=== PATIENT | male | born 1955 | race Caucasian/White ===

== ENCOUNTER 2016-12-21 17:53 | Emergency (ER) | payer BC ==
[~2016-12-21] VITALS: Ht 188 cm; Wt 117.0 kg
[2016-12-21 18:07] VITALS: TEMP 37; Ht 188 cm; Wt 117.0 kg
[2016-12-21] MEDS ORDERED: ASPI81TA28 PO (18:36)
[2016-12-21] MEDS ORDERED: PRAV40TA2 PO (18:39)
[2016-12-21] MEDS ORDERED: LISI-787 PO (18:39)
[2016-12-21] MEDS ORDERED: [UNRECOGNIZED DRUG - CODE] PO (18:39)
[2016-12-21] MEDS ORDERED: XYLOCAINE 1%/SOD BICARB 20 ML VIAL INFIL STA (18:42)
[2016-12-21] MEDS ORDERED: LIDOCAINE HCL 1% 20 ML VIAL ONE (18:44)
[2016-12-21] MEDS ORDERED: CEPHALEXIN MONOHYDRATE 250 MG CAP PO ONE (18:45)
[2016-12-21] MEDS ORDERED: CEPHALEXIN 500MG HOME PACK 1 EA BTL PO ONE (18:45)
--- NOTE | 2016-12-21 19:07 | EMERGENCY ROOM VISIT NOTE ---
History Report prepared by Quique: Sea Lamar Under the Supervision of: Dr. Dylan Wen M.D. First contact with patient: 18:12 Chief Complaint: LACERATION/CUT (SUT/DERMABOND) Stated Complaint: CUT FINGER L INDEX Nursing Triage Summary: laceration to left 2nd finger. had finger in way of string on the crossbow. History of Present Illness The patient is a 61 year old male who presents to the Emergency Room with complaints of left index finger pain that began AIRPLANE TESTER. He rates his pain a 2/10 in severity. At this time, the patient was shooting his friend's crossbow. He was resting his hand on a sandbag when he was shooting the bow. He accidently rested his finger on the drawstring when it fired. He has a laceration to the finger. The knuckle is exposed. He can still move the finger and does not believe that the bone is involved. His last Tetanus immunization was within the past 10 years. He denies any numbness. His pain worsens with movement. Source of History: patient Onset: AIRPLANE TESTER Position: finger(s) (Left index) Symptom Intensity: 2/10 Quality: ache Timing: constant Modifying Factors (Worsening): movement Associated Symptoms: No numbness Review of Systems See HPI for pertinent positives & negatives. A total of 10 systems reviewed and were otherwise negative. Past Medical & Surgical Medical Problems: (1) HLD (hyperlipidemia) (2) HTN (hypertension) Family History Omitted secondary to the patient's age. Social History Smoking Status: Light Tobacco Smoker Smokeless Tobacco Use: No Alcohol Use: occasionally Drug Use: none Occupation Status: employed Current/Historical Medications Scheduled Aspirin (Aspirin Ec), 81 MG PO DAILY Calcium (Chelated Calcium), 200 MG PO DAILY Cephalexin Monohydrate (Keflex), 1 CAP PO QID Lisinopril/Hctz (Zestoretic 20MG/12.5MG), 1 TAB PO DAILY Pravastatin Sodium (Pravastatin Sodium), 40 MG PO HS Allergies Coded Allergies: No Known Allergies (Unverified , 12/21/16) Physical Exam Vital Signs Date Time Temp Pulse Resp B/P (MAP) Pulse Ox O2 Delivery O2 Flow Rate FiO2 12/21/16 19:52 75 19 124/69 98 12/21/16 18:07 37.0 82 18 190/93 95 Room Air Physical Exam GENERAL: Patient is a healthy-appearing well-nourished male HEAD: Normocephalic atraumatic EYES: Ocular movements intact pupils equal and react to light OROPHARYNX mucous membranes are moist no exudates present no erythema or edema present NECK: Supple no nuchal rigidity CHEST: Good equal expansion LUNGS: Clear and equal to auscultation CARDIAC: Normal S1 and S2 ABDOMEN: Soft nontender no guarding BACK: No CVA tenderness EXTREMITIES: There is a soft tissue injury to the patient's first knuckle of the left index finger. Tendon intact. Good ROM of the distal and middle phalanx. On the dorsal surface he is able to extend and flex the finger. NEURO: Patient is following commands and answering questions appropriately. Alert and oriented x3 Cranial Nerves 2-12 grossly intact Medical Decision & Procedures ER Provider Diagnostic Interpretation: Radiology results as stated below per my review and radiologist interpretation: LEFT SECOND FINGER 3 VIEWS CLINICAL HISTORY: Second finger injury and pain. FINDINGS: 3 views of the left second finger are obtained. No prior studies are available for comparison at the time of dictation. The skeletal structures are well mineralized. No fracture is seen. Mild osteoarthritic change is present at the second distal interphalangeal joint. The second proximal interphalangeal and metacarpophalangeal joints are preserved. Soft tissue swelling is present in the second finger and a cutaneous injury is suggested at the level of the proximal phalangeal joint. No radiodense foreign body is identified. IMPRESSION: 1. Soft tissue injury/swelling in the left second digit with no radiographic evidence of fracture. 2. Mild arthritic change at the distal interphalangeal joint as above. Electronically signed by: Zachery Ramos M.D. 12/21/2016 7:05 PM Dictated Date/Time: 12/21/2016 7:03 PM Medications Administered Medications (Trade) Dose Ordered Sig/Jose Route Start Time Stop Time Status Last Admin Dose Admin Cephalexin Monohydrate (Keflex 500MG Home Pack) 1 homepack NOW ONCE PO 12/21/16 18:45 12/21/16 18:46 DC 12/21/16 19:31 1 HOMEPACK Cephalexin Monohydrate (Keflex Cap) 500 mg NOW ONCE PO 12/21/16 18:45 12/21/16 18:46 DC 12/21/16 19:31 500 MG Procedure Location: Left index finger, 1st knuckle Total length: 2.6 cm Complexity: simple, linear, does no appear to involve the tendon Verbal consent was obtained after the risks and benefits were explained, including but not limited to bleeding, scarring, infection, pain, and bone/joint /nerve damage. At this time, the risks of the procedure are less than the risks of NOT performing the procedure. A time out was taken and the correct patient and site identified. The skin was prepped with betadine. The target area was anesthetized with 4 ml of 1% lidocaine without epinephrine. Copious irrigation was performed using normal saline. The skin was re-prepped with betadine and a sterile field set. The wound was explored for foreign bodies and none found. Examination revealed no injury to deep structures such as tendons, bone, or significant blood vessels. Debridement was not performed. The wound edges were approximated using 6, 4-0 simple interrupted nylon sutures. Hemostasis and excellent approximation was achieved. Antibacterial ointment and a sterile dressing applied. Detailed wound care instructions and signs and symptoms of infection reviewed with the patient. No complications and the patient tolerated the procedure well. ED Course 1811: Past medical records reviewed. The patient was evaluated in room D1. A complete history and physical examination was performed. 1841: Ordered Lidocaine HCl 20 ml INFIL 1844: I performed a laceration repair procedure at this time. Please see the procedure note for more information. Ordered Keflex Cap 500 mg PO, Cephalexin Monohydrate 1 homepack PO Medical Decision Differential diagnosis: Etiologies such as fracture, dislocation, intra-abdominal, pneumothorax, intrathoracic , intracranial, neurologic, as well as other traumatic pathologies were entertained. This is a 61-year-old male who presents emergency department complaining of laceration to his index finger. The patient is neurovascularly intact and does not appear to have any tendon damage as he is able to extend his finger fully. The laceration was repaired as above. The patient's tetanus is up-to-date. I do believe that the patient can be safely discharged home for follow-up with hand surgeon. Patient was in agreement with the treatment plan. Medication Reconcilliation Current Medication List: was personally reviewed by me Blood Pressure Screening Patient's blood pressure: Elevated blood pressure Blood pressure disposition: Elevated BP felt to be situational Impression Primary Impression: Laceration Scribe Attestation The scribe's documentation has been prepared under my direction and personally reviewed by me in its entirety. I confirm that the note above accurately reflects all work, treatment, procedures, and medical decision making performed by me. Departure Information Dispostion Home / Self-Care Prescriptions Cephalexin Monohydrate (Keflex) 500 Mg Cap 1 CAP PO QID for 10 Days, #40 CAP Prov: Dylan Wen MD 12/21/16 Referrals Emeli Erazo M.D. (PCP) Jace James MD Forms HOME CARE DOCUMENTATION FORM, IMPORTANT VISIT INFORMATION, School Instructions, Work Instructions Patient Instructions ED Laceration Ext Sutr Stap Tape, ED Rupture Tendon Finger, ED Scar Tips to Minimize, My [facility] Additional Instructions Follow up with Dr James's office Sutures out in 10-14 days Apply bacitracin to sutures twice a day
[2016-12-21] MEDS ORDERED: CEPH500C PO (19:13)
[2016-12-21 19:52] VITALS: BP 124/69; PULSE 75; O2SAT 98
== END 2016-12-21 19:53 | disposition home or self-care (01) ==
LOC: C.EDB 17:54 → C.EDD 19:53
DX: S61.211A Laceration without foreign body of left index finger without damage to nail, initial encounter (principal); W20.8XXA Other cause of strike by thrown, projected or falling object, initial encounter; I10 Essential (primary) hypertension; E78.5 Hyperlipidemia, unspecified; F17.200 Nicotine dependence, unspecified, uncomplicated; Z79.82 Long term (current) use of aspirin; Z79.899 Other long term (current) drug therapy

== ENCOUNTER 2016-12-31 06:56 | Emergency (ER) | payer BC ==
[~2016-12-31] VITALS: Ht 188 cm; Wt 116.7 kg
[~2016-12-31 06:56] MED LIST: ASPI81TA28 PO; CEPH500C PO; LISI-787 PO; PRAV40TA2 PO; [UNRECOGNIZED DRUG - CODE] PO
[2016-12-31 07:04] VITALS: TEMP 36.6; Ht 188 cm; Wt 116.7 kg
--- NOTE | 2016-12-31 07:23 | EMERGENCY ROOM VISIT NOTE ---
ED Visit Note First contact with patient: 07:07 CHIEF COMPLAINT: Removal of sutures HISTORY OF PRESENT ILLNESS: This 61-year-old male patient presents to the emergency department for removal of sutures from their left index finger. The sutures were placed 10 days ago. There have been no signs of infection. The patient states he is still not able to move the finger fully. The patient denies any pain. REVIEW OF SYSTEMS: A review of systems was performed with positives and pertinent negatives listed in the history of present illness. All other systems were reviewed and are negative. ALLERGIES: No known drug allergies MEDICATIONS: Unchanged from previous visit. PMH: Unchanged from previous visit. SOCIAL HISTORY: Unchanged. PHYSICAL EXAM: VITALS: Vitals are noted on the nurse's note and reviewed by myself. Vital signs stable. GENERAL: This is a 61-year-old male, in no acute distress, nondiaphoretic, well- developed well-nourished. SKIN: There is a well-healing sutured wound on the left index finger over the PIP with no obvious signs of infection. ROM of the finger is limited. EMERGENCY DEPARTMENT COURSE: The patient was evaluated as above. Sutures were removed from the finger with no dehiscence. There is no evidence of infection. As the patient still has limited range of motion, he was advised to follow up with Dr. James. He will call for appointment. They verbalized understanding and were discharged home in good condition. DIAGNOSIS: Encounter for suture removal DISCHARGE INSTRUCTIONS & TREATMENT: Wash the remaining crusts off the wound. Keep the wound covered with SPF for the next 6 months to reduce scarring. Once the wound has fully healed, you may apply Vitamin E oil, cocoa butter, or any over the counter scar reducing formulations daily. Problem List Medical Problems: (1) HLD (hyperlipidemia) Status: Chronic (2) HTN (hypertension) Status: Chronic Current/Historical Medications Scheduled Aspirin (Aspirin Ec), 81 MG PO DAILY Calcium (Chelated Calcium), 200 MG PO DAILY Cephalexin Monohydrate (Keflex), 1 CAP PO QID Lisinopril/Hctz (Zestoretic 20MG/12.5MG), 1 TAB PO DAILY Pravastatin Sodium (Pravastatin Sodium), 40 MG PO HS Allergies Coded Allergies: No Known Allergies (Unverified , 12/21/16) Vital Signs Date Time Temp Pulse Resp B/P (MAP) Pulse Ox O2 Delivery O2 Flow Rate FiO2 12/31/16 07:04 36.6 71 18 149/97 98 Room Air Departure Information Impression Primary Impression: Encounter for removal of sutures Dispostion Home / Self-Care Condition GOOD Referrals Emeli Erazo M.D. (PCP) Jace James MD Patient Instructions My [facility] Additional Instructions Follow up with Dr. James for further evaluation of your injury. This is very important, as you may not regain your range of motion if you do not follow up with him.
[2016-12-31 07:34] VITALS: BP 149/97; PULSE 71; O2SAT 98
== END 2016-12-31 07:34 | disposition home or self-care (01) ==
LOC: C.EDB 06:56 → C.EDA 07:34
DX: S61.211D Laceration without foreign body of left index finger without damage to nail, subsequent encounter (principal); X58.XXXD Exposure to other specified factors, subsequent encounter; E78.5 Hyperlipidemia, unspecified; I10 Essential (primary) hypertension; Z79.82 Long term (current) use of aspirin

== ENCOUNTER 2019-12-19 09:10 | Inpatient (IN) ==
[2019-12-19] MEDS ORDERED: SODIUM CHLORIDE 0.9% 1000ML 1,000 ML IV SCH (10:00)
--- NOTE | 2019-12-19 10:00 | Emergency Department Note ---
History of Present Illness General Chief complaint: Illness Stated complaint: SHOULDER/BACK/LEG PAIN STAGE 4 CANCER Time Seen by Provider: 12/19/19 09:37 Source: patient and other (Girlfriend) History of Present Illness Provider complaint: Generalized weakness Onset (ago): day(s) Location: head Pain Consistency: + constant Maximum Pain Intensity: 7 Quality: + other (Generalized weakness) Exacerbated By: + other (Activity) Associated symptoms: + shortness of breath and + weakness; no chest pain, no cough, no fever/chills, no nausea/vomiting and no syncope This is a 64-year-old male with a history of stage IV prostate cancer with metastases to the bone sent here by his oncologist for evaluation for possible anemia. The patient states that he has been weak over the past 5 days. He has no energy and is unable to do much of anything. He admits that he has not been eating very much although he has been drinking plenty of water. He states that he just has no appetite. He states that he is not vomiting but he is worried that he will get nauseated if he tries to eat. He does have a history of chronic constipation due to the Percocet that he is taking for his pain to his bones. The patient states that he has had increased pain to his back, shoulders and legs. He has been trying to not take too much Percocet. He denies any fever, chest discomfort or pain, abdominal pain, vomiting or diarrhea. He denies any cough or cold symptoms or known exposure to COVID-19. He was tested 2 months ago and was negative. He has noticed some shortness of breath. He is currently on chemotherapy. Home Medications Home Medications Medication Instructions Recorded Confirmed Type cholecalciferol (vitamin D3) 1,000 unit PO QAM 03/20/19 12/19/19 History [Vitamin D3] docusate sodium [Stool Softener] 100 mg PO BID 09/21/19 12/19/19 History lisinopril 10 mg PO QAM 09/21/19 12/19/19 History oxycodone-acetaminophen 1 tab PO Q4H PRN 09/21/19 12/19/19 History prednisone 5 mg PO BID 10/11/19 12/19/19 History folic acid 1 mg PO QAM #30 tab 10/16/19 12/19/19 Rx mirtazapine 15 mg PO HS #30 tab 10/16/19 12/19/19 Rx abiraterone 250 mg PO DIRECTED 12/19/19 12/19/19 History atorvastatin 20 mg PO DAILY 12/19/19 12/19/19 History Allergies Allergy/AdvReac Type Severity Reaction Status Date / Time No Known Allergies Allergy Verified 10/11/19 18:06 Past Med/Surg History Medical History (Updated 12/19/19 @ 16:59 by Hang Marmolejo MD) HLD (hyperlipidemia) HTN (hypertension) Prostate cancer metastatic to bone Surgical History No pertinent past surgical history Family History Other No pertinent family history in first degree relatives Social History Smoking Status: Never smoker Hx Alcohol Use: No Hx Substance Use: No Preferred Language: Kazakh Communication Ability: Effective Guidance Director Required: No Beliefs That Will Affect Care: None marital status: Single Current Living Situation: Significant Other Other Information That Helps Us Care for You: No Feels Safe at Home: Yes Safety Concerns: Feels Safe At This Time Assistive Devices: Denture - Upper and Glasses Review of Systems See HPI for pertinent positives & negatives. and A total of 10 systems reviewed and were otherwise negative Physical Exam Vital Signs Vital Signs - 24 hr 12/19/19 09:15 12/19/19 09:59 12/19/19 10:17 Temperature 36.5 C Temperature Source Oral Pulse Rate - Lying 89 Pulse Rate - Sitting 94 H Pulse Rate - Standing 107 H Pulse Rate 104 H Pulse Rate [Apical] Respiratory Rate 20 Blood Pressure - Lying 136/78 Blood Pressure - Sitting 114/80 Blood Pressure- Standing 139/78 Blood Pressure 148/72 H Blood Pressure [Left Arm] Blood Pressure Mean 97 Blood Pressure Mean [Left Arm] Pulse Oximetry 98 98 Oxygen Delivery Method Room Air Room Air Sepsis Recent Fever Within 48 Hours No Sepsis New/Unexplained Change in Mental Status No Sepsis Action Taken by Nursing No Action Required 12/19/19 11:11 Temperature Temperature Source Pulse Rate - Lying Pulse Rate - Sitting Pulse Rate - Standing Pulse Rate Pulse Rate [Apical] 90 Respiratory Rate 18 Blood Pressure - Lying Blood Pressure - Sitting Blood Pressure- Standing Blood Pressure Blood Pressure [Left Arm] 126/79 Blood Pressure Mean Blood Pressure Mean [Left Arm] 94 Pulse Oximetry 97 Oxygen Delivery Method Room Air Sepsis Recent Fever Within 48 Hours Sepsis New/Unexplained Change in Mental Status Sepsis Action Taken by Nursing Constitutional: Vital signs reviewed. Cachectic and pale. Eyes: Pupils are equal round reactive to light. Conjunctiva are noninjected. ENT: Pharynx is clear without erythema or exudate. Mucous membranes are dry. Neck supple without meningeal signs. Respiratory: Clear to auscultation bilaterally. Breath sounds are equal bilaterally. Cardiovascular: Regular rate and rhythm. No rubs or gallops. GI: Soft, nondistended and nontender. Bowel sounds are present. Musculoskeletal: Slight ankle edema. No lower extremity tenderness. Integumentary: No cyanosis. or jaundice. Neurological: The patient is awake and alert. No focal deficits. Psychiatric: Normal affect. Not anxious appearing. Course Administered Medications Miscellaneous (Abiraterone 1,000 Mg ~ Order Awaiting Action) 1 ea N/A QS TITA Stop: 01/18/20 15:59 Last Admin: 12/19/19 16:37 Dose: Not Given Documented by: [id number] Discontinued Medications Sodium Chloride (Nss 1000ml) 1,000 mls @ 999 mls/hr IV .Q1H1M TITA Stop: 12/19/19 11:00 Last Infusion: 12/19/19 11:24 Dose: 0 mls/hr Documented by: [id number] Admin: 12/19/19 10:22 Dose: 999 mls/hr Documented by: [id number] Potassium Chloride (K Kaiden / Wtr) 10 meq in 100 mls @ 100 mls/hr IV ONE ONE Stop: 12/19/19 11:46 Last Infusion: 12/19/19 12:12 Dose: 0 mls/hr Documented by: [id number] Admin: 12/19/19 11:08 Dose: 100 mls/hr Documented by: [id number] Oxycodone/Acetaminophen (Oxycodone/Acetaminophen 10-325 Tab) 1 tab PO ONE STA Stop: 12/19/19 13:19 Last Admin: 12/19/19 14:03 Dose: 1 tab Documented by: [id number] Critical Care Time Critical Care Time: Yes Total Critical Care Time: 35 I have personally spent approximately 35 minutes of critical care time in the direct management of this patient. This includes bedside care, interpretation of diagnostic studies, and testing, discussion with consultants, patient, and family members, and other required patient management activities. These minutes are in excess of all separately billable procedures. Medical Decision Making Differential Diagnosis Anemia, dehydration, metabolic derangement, infection, malnutrition Medical Records Attestation: I reviewed the patient's medical records. The patient was admitted to the hospital in September for generalized weakness and anemia. He was seen here September 20 and transfused 2 units in the emergency department and discharged home. He came back later that month with worsening anemia and weakness. He was hospitalized at that time and transfused an additional 2 units of packed RBCs. His anemia was felt to be multifactorial and partly due to malnutrition. Home Medications Current Medication List: was personally reviewed by me Laboratory Data Attestation: I reviewed the patient's lab results. Result diagrams: 12/19/19 09:57 12/19/19 09:57 Lab Results 12/19/19 12/19/19 12/19/19 Range/Units 09:57 09:57 09:57 WBC 3.31 L (4.8-10.8) K/uL RBC 2.56 L (4.7-6.1) M/uL Hgb 6.9 L* (14.0-18.0) g/dL Hct 22.2 L (42-52) % MCV 86.7 (80-100) fL MCH 27.0 (25-34) pg MCHC 31.1 L (32-36) g/dL RDW Std Deviation 66.3 H (36.4-46.3) fL RDW Coeff of Xochitl 20.8 H (11.5-14.5) % Plt Count 322 (130-400) K/uL MPV 8.8 (7.4-10.4) fL Immature Gran % (Auto) 0.9 % Neut % (Auto) 81.3 % Lymph % (Auto) 10.9 % [place] % (Auto) 6.3 % Eos % (Auto) 0.3 % Baso % (Auto) 0.3 % Reticulocyte % (Auto) (0.5-2.0) % Neut # (Auto) 2.69 (1.4-6.5) K/uL Lymph # (Auto) 0.36 L (1.2-3.4) K/uL [place] # (Auto) 0.21 (0.11-0.59) K/uL Eos # (Auto) 0.01 (0-0.5) K/uL Baso # (Auto) 0.01 (0-0.2) K/uL Reticulocyte # (0.02-0.10) 10^6/uL Immature Gran # (Auto) 0.03 H (0.00-0.02) K/uL Anisocytosis Present Tear Drop Cells Occasional Ovalocytes 1+ Schistocytes Occasional Sodium 137 (136-145) mmol/L Potassium 3.1 L (3.5-5.1) mmol/L Chloride 103 (98-107) mmol/L Carbon Dioxide 27 (21-32) mmol/L Anion Gap 7.0 (3-11) BUN 12 (7-18) mg/dl Creatinine 0.36 L (0.6-1.4) mg/dl Est Cr Clr Drug Dosing Not Reportable Est GFR ( Amer) > 150.0 Est GFR (Non-Af Amer) 132.0 BUN/Creatinine Ratio 33.9 H (10-20) Glucose 95 (70-99) mg/dl Calcium 8.5 (8.5-10.1) mg/dl Phosphorus (2.5-4.9) mg/dl Magnesium (1.8-2.4) mg/dl Iron (35-175) mcg/dl Transferrin (200-360) mg/dl Transferrin % Sat (20-50) % Total Bilirubin 0.6 (0.2-1) mg/dl AST 54 H (15-37) U/L ALT 8 L (12-78) U/L Alkaline Phosphatase 1452 H (45-117) U/L Troponin I 0.032 (0-0.045) ng/ml Total Protein 5.5 L (6.4-8.2) gm/dl Albumin 1.7 L (3.4-5.0) gm/dl Globulin 3.8 (2.5-4.0) gm/dl Albumin/Globulin Ratio 0.4 L (0.9-2) TSH 1.780 (0.300-4.500) uIu/ml Blood Type Antibody Screen Crossmatch 12/19/19 12/19/19 12/19/19 Range/Units 09:57 09:57 09:57 WBC (4.8-10.8) K/uL RBC (4.7-6.1) M/uL Hgb (14.0-18.0) g/dL Hct (42-52) % MCV (80-100) fL MCH (25-34) pg MCHC (32-36) g/dL RDW Std Deviation (36.4-46.3) fL RDW Coeff of Xochitl (11.5-14.5) % Plt Count (130-400) K/uL MPV (7.4-10.4) fL Immature Gran % (Auto) % Neut % (Auto) % Lymph % (Auto) % [place] % (Auto) % Eos % (Auto) % Baso % (Auto) % Reticulocyte % (Auto) 1.6 (0.5-2.0) % Neut # (Auto) (1.4-6.5) K/uL Lymph # (Auto) (1.2-3.4) K/uL [place] # (Auto) (0.11-0.59) K/uL Eos # (Auto) (0-0.5) K/uL Baso # (Auto) (0-0.2) K/uL Reticulocyte # 0.04 (0.02-0.10) 10^6/uL Immature Gran # (Auto) (0.00-0.02) K/uL Anisocytosis Tear Drop Cells Ovalocytes Schistocytes Sodium (136-145) mmol/L Potassium (3.5-5.1) mmol/L Chloride (98-107) mmol/L Carbon Dioxide (21-32) mmol/L Anion Gap (3-11) BUN (7-18) mg/dl Creatinine (0.6-1.4) mg/dl Est Cr Clr Drug Dosing Est GFR ( Amer) Est GFR (Non-Af Amer) BUN/Creatinine Ratio (10-20) Glucose (70-99) mg/dl Calcium (8.5-10.1) mg/dl Phosphorus 3.0 (2.5-4.9) mg/dl Magnesium 2.0 (1.8-2.4) mg/dl Iron 42 (35-175) mcg/dl Transferrin 104 L (200-360) mg/dl Transferrin % Sat 29 (20-50) % Total Bilirubin (0.2-1) mg/dl AST (15-37) U/L ALT (12-78) U/L Alkaline Phosphatase (45-117) U/L Troponin I (0-0.045) ng/ml Total Protein (6.4-8.2) gm/dl Albumin (3.4-5.0) gm/dl Globulin (2.5-4.0) gm/dl Albumin/Globulin Ratio (0.9-2) TSH (0.300-4.500) uIu/ml Blood Type Antibody Screen Crossmatch 12/19/19 Range/Units 11:26 WBC (4.8-10.8) K/uL RBC (4.7-6.1) M/uL Hgb (14.0-18.0) g/dL Hct (42-52) % MCV (80-100) fL MCH (25-34) pg MCHC (32-36) g/dL RDW Std Deviation (36.4-46.3) fL RDW Coeff of Xochitl (11.5-14.5) % Plt Count (130-400) K/uL MPV (7.4-10.4) fL Immature Gran % (Auto) % Neut % (Auto) % Lymph % (Auto) % [place] % (Auto) % Eos % (Auto) % Baso % (Auto) % Reticulocyte % (Auto) (0.5-2.0) % Neut # (Auto) (1.4-6.5) K/uL Lymph # (Auto) (1.2-3.4) K/uL [place] # (Auto) (0.11-0.59) K/uL Eos # (Auto) (0-0.5) K/uL Baso # (Auto) (0-0.2) K/uL Reticulocyte # (0.02-0.10) 10^6/uL Immature Gran # (Auto) (0.00-0.02) K/uL Anisocytosis Tear Drop Cells Ovalocytes Schistocytes Sodium (136-145) mmol/L Potassium (3.5-5.1) mmol/L Chloride (98-107) mmol/L Carbon Dioxide (21-32) mmol/L Anion Gap (3-11) BUN (7-18) mg/dl Creatinine (0.6-1.4) mg/dl Est Cr Clr Drug Dosing Est GFR ( Amer) Est GFR (Non-Af Amer) BUN/Creatinine Ratio (10-20) Glucose (70-99) mg/dl Calcium (8.5-10.1) mg/dl Phosphorus (2.5-4.9) mg/dl Magnesium (1.8-2.4) mg/dl Iron (35-175) mcg/dl Transferrin (200-360) mg/dl Transferrin % Sat (20-50) % Total Bilirubin (0.2-1) mg/dl AST (15-37) U/L ALT (12-78) U/L Alkaline Phosphatase (45-117) U/L Troponin I (0-0.045) ng/ml Total Protein (6.4-8.2) gm/dl Albumin (3.4-5.0) gm/dl Globulin (2.5-4.0) gm/dl Albumin/Globulin Ratio (0.9-2) TSH (0.300-4.500) uIu/ml Blood Type O Positive Antibody Screen NEGATIVE Crossmatch See Detail Imaging Data Radiologist's Impression: CHEST AND ABDOMEN 2 VIEWS HISTORY: nausea eval for obstruction COMPARISON: Chest 10/11/2019. Abdomen and pelvis CT 10/10/2019. FINDINGS: No pneumothorax. No pleural effusions. The heart is normal in size. No focal lung consolidations to suggest pneumonia. Incidental note is made of a small right azygos lobe. No pneumoperitoneum. No pneumatosis. No dilated loops of bowel to suggest an obstruction. No renal or ureteral calculi. Near diffuse patchy areas of sclerosis within the visualized osseous structures consistent wi th osteoblastic metastatic disease. Moderate amount of well-formed stool within the colon. IMPRESSION: 1. No acute process within the chest. 2. No evidence for bowel obstruction. 3. Moderate amount of well-formed stool within the colon. 4. 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 ACT 112: Negative or not required by law. Electronically signed by: Que Subramanian M.D. 12/19/2019 11:27 AM ECG Data Attestation: I personally reviewed and interpreted this ECG as follows: Indication: + weakness Rate (beats per minute): 91 Rhythm: + normal sinus ECG [place]: + Normal ECG ST segments: no ST elevation ECG Findings: + PVCs Comparison ECG Date: from (October 11, 2019) Change: the following changes noted (QT is longer) Blood Pressure Blood Pressure Findings: Elevated blood pressure Blood Pressure Disposition: Referred to patients primary care provider MDM Narrative I did evaluate the patient as noted above. IV access was established. I did place an order for continuous cardiac monitoring. The monitor showed sinus tachycardia with a rate of 102 bpm. I did treat him with a liter of normal saline IV. I did order and personally review the patient's 12-lead EKG as described above. He has no acute ischemic changes. I did order and personally reviewed the images of the patient's chest/abdominal x-ray as described above. There is no evidence of obstruction or infiltrate. I did order a urine analysis. I did order and review the patient's blood work as noted in the electronic medical record. His white count is 3.3. He is not neutropenic. He has a hemoglobin of 6.9. Potassium is 3.1. I did discuss the test results with the patient. I did recommend transfusion. I did obtained informed consent. I did order 2 units of packed RBCs crossmatched blood. I did treat him with IV KCl. He will be hospitalized for further care and evaluation. I did discuss case with the hospitalist and shoe parts caser. Impression & Plan Symptomatic anemia, Generalized weakness, Leukopenia, Acute hypokalemia, Anorexia Discharge Plan Visit Data Chief Complaint: Illness Stated Complaint: SHOULDER/BACK/LEG PAIN STAGE 4 CANCER ED Provider: Hang Marmolejo Discharge Problem: Symptomatic anemia, Generalized weakness, Leukopenia, Acute hypokalemia, Anore van Patient Disposition: Admitted As Inpatient Discharge Instructions Interventions: ED Discharge Assessment Last Done: 12/19/19 14:29 Discharge Problem: Leukopenia Qualifiers: Leukopenia type: unspecified Qualified Code(s): D72.819 - Decreased white blood cell count, unspecified
[2019-12-19 10:21] LABS: Hematocrit (blood only) 22.2 % (42-52); Hemoglobin 6.9 g/dL (14.0-18.0); Mean Corpuscular Hgb Conc 31.1 g/dL (32-36); Mean Corpuscular Volume 86.7 fL (80-100); Mean Platelet Volume 8.8 fL (7.4-10.4); Platelet Count 322 K/uL (130-400); RDW Coefficient of Variation 20.8 % (11.5-14.5); RDW Standard Deviation 66.3 fL (36.4-46.3); Red Blood Count 2.56 M/uL (4.7-6.1); White Blood Count 3.31 K/uL (4.8-10.8)
[2019-12-19 10:30] LABS: Alanine Aminotransferase 8 U/L (12-78); Albumin Level 1.7 gm/dl (3.4-5.0); Aspartate Aminotransferase 54 U/L (15-37); BUN Creatinine Ratio 33.9 (10-20); Blood Urea Nitrogen 12 mg/dl (7-18); Calcium 8.5 mg/dl (8.5-10.1); Carbon Dioxide 27 mmol/L (21-32); Chloride 103 mmol/L (98-107); Est GFR (African American) > 150.0; Glucose 95 mg/dl (70-99); Potassium 3.1 mmol/L (3.5-5.1); Sodium 137 mmol/L (136-145)
[2019-12-19 10:41] LABS: Anisocytosis Present; Basophils # (auto) 0.01 K/uL (0-0.2); Basophils % (auto) 0.3 %; Eosinophils # (auto) 0.01 K/uL (0-0.5); Eosinophils % (auto) 0.3 %; Immature Granulocytes # (auto) 0.03 K/uL (0.00-0.02); Immature Granulocytes % (auto) 0.9 %; Lymphocytes # (auto) 0.36 K/uL (1.2-3.4); Lymphocytes % (auto) 10.9 %; Monocytes # (auto) 0.21 K/uL (0.11-0.59); Monocytes % (auto) 6.3 %; Neutrophils # (auto) 2.69 K/uL (1.4-6.5); Neutrophils % (auto) 81.3 %; Ovalocytes 1+; Schistocytes Occasional; Tear Drop Cells Occasional
[2019-12-19 10:43] LABS: Albumin Globulin Ratio 0.4 (0.9-2); Alkaline Phosphatase 1452 U/L (45-117); Bilirubin,Total 0.6 mg/dl (0.2-1); Globulin 3.8 gm/dl (2.5-4.0); Total Protein 5.5 gm/dl (6.4-8.2); Troponin I 0.032 ng/ml (0-0.045)
[2019-12-19] MEDS ORDERED: POTASSIUM CHLORIDE / WTR 10 MEQ/100 ML PLCT IV ONE (10:47)
[2019-12-19] MEDS ORDERED: SODIUM CHLORIDE 0.9% 250 ML IV PRN ×2 (10:47→16:05)
--- NOTE | 2019-12-19 11:28 | XRay Report ---
CHEST AND ABDOMEN 2 VIEWS HISTORY: nausea eval for obstruction COMPARISON: Chest 10/11/2019. Abdomen and pelvis CT 10/10/2019. FINDINGS: No pneumothorax. No pleural effusions. The heart is normal in size. No focal lung consolida tions to suggest pneumonia. Incidental note is made of a small right azygos lobe. No pneumoperitoneum . No pneumatosis. No dilated loops of bowel to suggest an obstruction. No renal or ureteral calculi. Near diffuse patchy areas of sclerosis within the visualized osseous structures consistent with osteo blastic metastatic disease. Moderate amount of well-formed stool within the colon. IMPRESSION: 1. No acute process within the chest. 2. No evidence for bowel obstruction. 3. Moderate amount of well-formed stool within the colon. 4. 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 ACT 112: Negative or not required by law. Electronically signed by: Que Subramanian M.D. 12/19/2019 11:27 AM
[2019-12-19 12:34] LABS: Reticulocyte % 1.6 % (0.5-2.0); Reticulocytes # 0.04 10^6/uL (0.02-0.10)
--- NOTE | 2019-12-19 12:34 | History & Physical Report ---
Date of Service December 19, 2019 Assessment & Plan (1) Symptomatic anemia: Transferrin sats, folate level, retic count. Continue folic acid supplementation. Transfuse 2 units Repeat H&H 1 hour after this. Aim Hgb > 7 and asymptomatic (2) Prostate cancer metastatic to bone: Continue Zytiga 1 g p.o. daily, prednisone 5 mg p.o. twice daily. Patient is counting down the hours to his next pain medication therefore will utilize OxyContin for baseline analgesia. Using Oxycodone total 60 mg/day. Will initially prescribe Oxycontin 20mg BID while continuing Percocet for breakthrough pain. I am unclear if he is getting Xgeva and will request his last oncology note. (3) Generalized weakness: Possible spinal cord compression discussed with the patient. However his issue is more with pain rather than weakness and he notes it would be hard for him to get through an MRI for his back. Therefore will initially aim to control his pain better with Oxycontin and if still having significant weakness consider MRI lumbar spine to assess for spinal cord compression. PT/OT eval and treat (4) Poor appetite: No GERD symptoms. Continue bowel regimen with MiraLAX twice daily and Senokot twice daily to relieve constipation. Aim to improve pain with OxyContin and reassess wether this increases his appetite. Continue mirtazapine 15 mg p.o. at bedtime. Boost PRN, consult dietitian. (5) Severe protein-calorie malnutrition: Boost, fire extinguisher repairer consult (6) HTN (hypertension): Hold lisinopril as unclear he really requires this given low dose and aim to reduce pill burden. Monitor BP. (7) Hypokalemia: K 3.1. KCl 10 meq IV given in ER. Give additional KCl 20 meq PO. Repeat BMP in a.m. (8) DVT prophylaxis: Deferred chemical prophylaxis pending anemia stability Admission and Anticipated Discharge Date Admission Date: December 18, 2019 History of Present Illness Chief Complaint: Back pain, loss of appetite, generalized weakness Primary Care Provider: Emeli Erazo Hang Bean is a 64 year old male with metastatic prostate cancer currently treated with Zytiga who presents to the ER with generalized weakness, dizziness and pain. He reports this is similar to when I admitted him back in September. He was anemic at that stage in addition and has had multiple blood transfusions since although does not report significant improvements with his blood transfusions. He does note dizziness and lightheadedness however. He denies significant nausea as he was having back in September but has continued appetite suppression which initially improved on Zytiga and mirtazapine. His pain issue appears to be pain which initially he just tells me is everywhere although also notes most significantly it is down the front of his thighs when he stands but finds this hard to describe in much detail. No urinary retention or perianal numbness. He feels his problem is more pain than weakness in his lower extremities. He continues to feel his oncologist has not told him much a bout his prognosis and continues to have anxiety about this which was similar to what he told me back in September. His notes significant worsening of his generalized weakness and pain over the last 5 days although reports no significant exacerbating event that could have started this episode. No trauma. Allergies Allergy/AdvReac Type Severity Reaction Status Date / Time No Known Allergies Allergy Verified 10/11/19 18:06 Home Medications Home Medications Medication Instructions Recorded Confirmed Type cholecalciferol (vitamin D3) 1,000 unit PO QAM 03/20/19 12/19/19 History [Vitamin D3] docusate sodium [Stool Softener] 100 mg PO BID 09/21/19 12/19/19 History lisinopril 10 mg PO QAM 09/21/19 12/19/19 History oxycodone-acetaminophen 1 tab PO Q4H PRN 09/21/19 12/19/19 History prednisone 5 mg PO BID 10/11/19 12/19/19 History folic acid 1 mg PO QAM #30 tab 10/16/19 12/19/19 Rx mirtazapine 15 mg PO HS #30 tab 10/16/19 12/19/19 Rx abiraterone 250 mg PO DIRECTED 12/19/19 12/19/19 History atorvastatin 20 mg PO DAILY 12/19/19 12/19/19 History Past Med/Surg History Medical History HLD (hyperlipidemia) HTN (hypertension) Prostate cancer metastatic to bone Surgical History No pertinent past surgical history Family History Other No pertinent family history in first degree relatives Social History Smoking Status: Never smoker Hx Alcohol Use: No Hx Substance Use: No Preferred Language: Greek Communication Ability: Effective Real Estate Assistant Required: No Beliefs That Will Affect Care: None marital status: Single Current Living Situation: Significant Other Other Information That Helps Us Care for You: No Feels Safe at Home: Yes Safety Concerns: Feels Safe At This Time Assistive Devices: Denture - Upper and Glasses Review of Systems Review of Systems: All systems reviewed & are unremarkable except as noted in HPI & below Physical Exam Constitutional: well developed; + not well nourished and no acute distress Eyes: + anicteric sclerae; normal pupil size ENMT: external ear and nose normal, oropharynx normal Respiratory: normal respiratory effort, lungs clear to auscultation Cardiovascular: RRR, no murmur, no edema Gastrointestinal (Abdomen): normal bowel sounds, soft, nontender, no hepatospl enomegaly Musculoskeletal: Generalized pain over entire back and spine. 4/5 LE Skin: no rashes, warm and dry Neurologic: moves all extremities and awake; no focal motor deficits and not confused Psychiatric: Orientation: alert and oriented x 3 Affect: + anxious affect Results & Data Results & Data ([facility]) Vital Signs (Past 12 Hours) Vital Signs Temp Pulse Pulse Resp BP BP Pulse Ox 12/19/19 11:11 90 18 126/79 97 12/19/19 09:59 98 12/19/19 09:15 36.5 C 104 H 20 148/72 H 98 Diagnostic Findings CHEST AND ABDOMEN 2 VIEWS IMPRESSION: 1. No acute process within the chest. 2. No evidence for bowel obstruction. 3. Moderate amount of well-formed stool within the colon. 4. 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 ECG Indication: back/shoulder pain Rate (beats per minute): 91 Rhythm: normal sinus Findings: + PVC Comparison ECG Date: from (September,) Change: the following changes noted (PVCs present) Code Status & VTE Plan Code Status DNR/DNI as per patient wishes VTE Prophylaxis Plan VTE Prophylaxis will be ordered: No PG Care Time/CCT Total # of Minutes Spent Total Time Spent with Patient: Total time spent is greater than 50% in coordination of care (as documented) at patient's floor/unit and/or counseling patient: Coding Level of Care Code 30852 Initial Inpt Care Lvl 3 Diagnoses Symptomatic anemia D64.9 Prostate cancer metastatic to bone C61; C79.51 Generalized weakness R53.1 Poor appetite R63.0 Severe protein-calorie malnutrition E43 HTN (hypertension) I10 Hypokalemia E87.6 DVT prophylaxis Z29.9
[2019-12-19] MEDS ORDERED: OXYCODONE/ACETAMINOPHEN 10-325 TAB PO STA (13:18)
[2019-12-19 13:35] LABS: Iron 42 mcg/dl (35-175); Transferrin 104 mg/dl (200-360); Transferrin Percent Saturation 29 % (20-50)
[2019-12-19] MEDS ORDERED: ACETAMINOPHEN 325 MG TAB PO PRN (15:18)
[2019-12-19] MEDS ORDERED: POTASSIUM CHLORIDE 20 MEQ TABCR PO ONE (15:18)
[2019-12-19] MEDS ORDERED: ONDANSETRON INJ 2 MG/ML 2 ML VIAL IV PRN (15:18)
[2019-12-19] MEDS: POLYETHYLENE (MIRALAX) 17 GM PACK PO SCH ×2 (17:02→21:13)
[2019-12-19 21:04] LABS: Hematocrit (blood only) 25.6 % (42-52); Hemoglobin 8.2 g/dL (14.0-18.0)
[2019-12-19] MEDS: OXYCODONE HCL 20 MG TABCR (OXYCONTIN) PO SCH (21:16)
[2019-12-19] MEDS: DOCUSATE SODIUM/SENNA 50/8.6MG TAB PO SCH (21:17)
[2019-12-19] MEDS: MIRTAZAPINE TAB 15 MG TAB PO SCH (21:17)
[2019-12-19] MEDS: predniSONE 5 MG TAB PO SCH (21:17)
--- NOTE | 2019-12-20 05:52 | Electrocardiogram Report ---
Test Reason : Blood Pressure : / mmHG Vent. Rate : 091 BPM Atrial Rate : 091 BPM P-R Int : 146 ms QRS Dur : 082 ms QT Int : 418 ms P-R-T Axes : 015 003 052 degrees QTc Int : 514 ms Sinus rhythm with frequent Premature ventricular complexes Prolonged QT Abnormal ECG When compared with ECG of 11-OCT-2019 16:58, Premature ventricular complexes are now Present QT has lengthened Confirmed by Reza Patel ([id number]) on 12/20/2019 5:52:22 AM Referred By: REFERRED SELF Confirmed By:Reza Patel
[2019-12-20 07:08] LABS: Basophils # (auto) 0.02 K/uL (0-0.2); Basophils % (auto) 0.6 %; Eosinophils # (auto) 0.03 K/uL (0-0.5); Eosinophils % (auto) 0.8 %; Hematocrit (blood only) 25.9 % (42-52); Hemoglobin 8.2 g/dL (14.0-18.0); Immature Granulocytes # (auto) 0.05 K/uL (0.00-0.02); Immature Granulocytes % (auto) 1.4 %; Lymphocytes # (auto) 0.56 K/uL (1.2-3.4); Lymphocytes % (auto) 15.6 %; Mean Corpuscular Hemoglobin 27.6 pg (25-34); Mean Corpuscular Hgb Conc 31.7 g/dL (32-36); Mean Corpuscular Volume 87.2 fL (80-100); Mean Platelet Volume 8.7 fL (7.4-10.4); Monocytes % (auto) 8.4 %; Neutrophils # (auto) 2.62 K/uL (1.4-6.5); Neutrophils % (auto) 73.2 %; Nucleated RBC # (auto) 0.02 K/uL (0-0); Nucleated RBC % (auto) 0.5 %; Platelet Count 319 K/uL (130-400); RDW Standard Deviation 63.7 fL (36.4-46.3); Red Blood Count 2.97 M/uL (4.7-6.1); White Blood Count 3.58 K/uL (4.8-10.8)
[2019-12-20 07:38] LABS: Alanine Aminotransferase 9 U/L (12-78); Albumin Level 1.7 gm/dl (3.4-5.0); Anisocytosis Present; Aspartate Aminotransferase 65 U/L (15-37); BUN Creatinine Ratio 22.7 (10-20); Blood Urea Nitrogen 9 mg/dl (7-18); Calcium 8.7 mg/dl (8.5-10.1); Carbon Dioxide 28 mmol/L (21-32); Chloride 108 mmol/L (98-107); Est GFR (Non-African American) 127.7; Glucose 88 mg/dl (70-99); Ovalocytes 1+; Potassium 3.3 mmol/L (3.5-5.1); Sodium 142 mmol/L (136-145)
[2019-12-20 07:52] LABS: Albumin Globulin Ratio 0.5 (0.9-2); Alkaline Phosphatase 1338 U/L (45-117); Bilirubin,Total 0.6 mg/dl (0.2-1); Globulin 3.5 gm/dl (2.5-4.0); Phosphorus 2.8 mg/dl (2.5-4.9); Total Protein 5.2 gm/dl (6.4-8.2)
[2019-12-20] MEDS: POLYETHYLENE (MIRALAX) 17 GM PACK PO SCH ×2 (08:29→20:49)
[2019-12-20] MEDS: CHOLECALCIFEROL 1,000 UNITS 25 MCG TAB PO SCH (10:21)
[2019-12-20] MEDS: predniSONE 5 MG TAB PO SCH ×2 (10:21→20:53)
[2019-12-20] MEDS: OXYCODONE HCL 20 MG TABCR (OXYCONTIN) PO SCH ×2 (10:21→20:53)
[2019-12-20] MEDS: ATORVASTATIN 20 MG TAB PO SCH (10:22)
[2019-12-20] MEDS: FOLIC ACID 1 MG TAB PO SCH (10:22)
[2019-12-20] MEDS: DOCUSATE SODIUM/SENNA 50/8.6MG TAB PO SCH ×2 (10:22→20:49)
[2019-12-20] MEDS: ABIRATERONE ACETATE PO SCH (10:22)
[2019-12-20] MEDS: MIRTAZAPINE TAB 15 MG TAB PO SCH (20:53)
[2019-12-20] MEDS ORDERED: POTASSIUM CHLORIDE 20 MEQ TABCR PO STA (22:12)
[2019-12-20] MEDS ORDERED: ENOXAPARIN INJ 40 MG/0.4 ML SYR SQ ONE (22:13)
--- NOTE | 2019-12-20 22:29 | Hospitalist Progress Note ---
Date of Service December 20, 2019 Assessment & Plan (1) Symptomatic anemia: hemoglobinIron sats and folic acid levels WNL. Retic count inappropriately normal (suspect bone marrow suppression, ?chemo ?bone mets). S/P 2 units transfused, Hgb stable 8.2. Repeat CBC tomorrow. Aim Hgb > 7 and asymptomatic (2) Prostate cancer metastatic to bone: Continue Zytiga 1 g p.o. daily, prednisone 5 mg p.o. twice daily. Continue Oxycontin 20mg PO BID although unclear if this is making him more confused. Consult palliative care. I am unclear if he is getting Xgeva and will request his last oncology note. (3) Generalized weakness: Appears to be out of proportion quadriceps weakness to his pain. Will initially get Lumbar spine XRs to assess disc space or acute vertebral compression. Discuss with his girlfriend tomorrow regarding further imaging to r.o spinal cord compression. PT/OT eval and treat (4) Poor appetite: No GERD symptoms. Refuses further laxatives after a large BM last night. Unclear what bowel regimen he needs to be on for outpatient at the current time. Aim to improve pain with OxyContin and reassess whether this increases his appetite. Continue mirtazapine 15 mg p.o. at bedtime. Boost PRN, consult dietitian. (5) Severe protein-calorie malnutrition: Boost, press tender short goods consult (6) HTN (hypertension): Hold lisinopril as unclear he really requires this given low dose and aim to reduce pill burden. Monitor BP. (7) Hypokalemia: May need daily supplementation if continues to be low. Additional 20 meq PO K Cl today. (8) DVT prophylaxis: Start lovenox 40mg SQ daily Admission and Anticipated Discharge Date Admission Date: December 19, 2019 Subjective Patient seen in the evening. Not taking any Percocet. Limited understanding in Oxycontin vs. Percocet but reports his pain is improved. No lightheadedness or dizziness today after blood transfusions given. No chest pain or shortness of breath. His girlfriend was not at bedside and we had very similar conversations to yesterday regarding imaging of his back which he is still not keen to get done as he struggles enough to get through a CT/XR lying on his back never mind an MRI. Agrees to lumbar spine XR and will have to discuss more with his girlfriend tomorrow regarding further imaging. He does not appear to be in significant pain but has substantial weakness in his quadriceps b/l. Review of Systems Review of Systems: All systems reviewed & are unremarkable except as noted in HPI & below Physical Exam Constitutional: well developed; + not well nourished and no acute distress Respiratory: normal respiratory effort, lungs clear to auscultation Cardiovascular: RRR, no murmur, no edema Gastrointestinal (Abdomen): normal bowel sounds, soft, nontender, no hepatosplenomegaly Skin: no rashes, warm and dry Neurologic: moves all extremities, + focal motor deficit (b/l hip flexion 3/5, otherwise 4/5 in LE), awake and + confused (repeating same conversations) Psychiatric: Orientation: alert and oriented x 3 Affect: + anxious affect Results & Data Results & Data ([facility]) Vital Signs (Past 12 Hours) Vital Signs Temp Pulse Resp BP Pulse Ox 12/20/19 15:00 36.3 C L 89 20 137/79 98 PG Care Time/CCT Total # of Minutes Spent Total Time Spent with Patient: Total time spent is greater than 50% in coordination of care (as documented) at patient's floor/unit and/or counseling patient: Coding Level of Care Code 18851 Subseq Hosp Care Lvl 2 Diagnoses Symptomatic anemia D64.9 Prostate cancer metastatic to bone C61; C79.51 Generalized weakness R53.1 Poor appetite R63.0 Severe protein-calorie malnutrition E43 HTN (hypertension) I10 Hypokalemia E87.6 DVT prophylaxis Z29.9
[2019-12-21 07:17] LABS: Hematocrit (blood only) 28.7 % (42-52); Hemoglobin 8.8 g/dL (14.0-18.0); Mean Corpuscular Hemoglobin 27.2 pg (25-34); Mean Corpuscular Hgb Conc 30.7 g/dL (32-36); Mean Corpuscular Volume 88.9 fL (80-100); Nucleated RBC # (auto) 0.04 K/uL (0-0); Nucleated RBC % (auto) 0.9 %; Platelet Count 316 K/uL (130-400); RDW Coefficient of Variation 19.9 % (11.5-14.5); RDW Standard Deviation 65.3 fL (36.4-46.3); Red Blood Count 3.23 M/uL (4.7-6.1); White Blood Count 3.78 K/uL (4.8-10.8)
[2019-12-21] MEDS: OXYCODONE/ACETAMINOPHEN 10-325 TAB PO PRN ×2 (07:34→14:13)
[2019-12-21] MEDS: ABIRATERONE ACETATE PO SCH (07:35)
[2019-12-21 07:51] LABS: BUN Creatinine Ratio 21.8 (10-20); Calcium 9.5 mg/dl (8.5-10.1); Creatinine Clr Calc Pharmacy 158.4 ml/min; Est GFR (African American) 134.8; Est GFR (Non-African American) 116.3; Potassium 3.6 mmol/L (3.5-5.1)
[2019-12-21] MEDS ORDERED: predniSONE 20 MG TAB PO STA (09:47)
--- NOTE | 2019-12-21 10:00 | XRay Report ---
XR lumbar spine 2-3V CLINICAL HISTORY: Bilateral lower extremity weakness. COMPARISON STUDY: Abdomen and pelvis CT 10/10/2019. FINDINGS: Near diffuse sclerosis within the visualized lumbar spine, sacrum, and pelvis consistent wi th the patient's known osteoblastic metastatic disease. No fractures of fixation within the lumbar sp ine. Mild disc space narrowing at L4-L5 and facet degenerative changes within the lower lumbar spine. IMPRESSION: 1. 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 2. No fracture or subluxation ACT 112: Negative or not required by law. Electronically signed by: Que Subramanian M.D. 12/21/2019 9:59 AM
[2019-12-21] MEDS: OXYCODONE HCL 20 MG TABCR (OXYCONTIN) PO SCH (10:21)
[2019-12-21] MEDS: predniSONE 5 MG TAB PO SCH (10:21)
[2019-12-21] MEDS: CHOLECALCIFEROL 1,000 UNITS 25 MCG TAB PO SCH (10:22)
[2019-12-21] MEDS: POLYETHYLENE (MIRALAX) 17 GM PACK PO SCH (10:22)
[2019-12-21] MEDS: FOLIC ACID 1 MG TAB PO SCH (10:23)
[2019-12-21] MEDS: ATORVASTATIN 20 MG TAB PO SCH (10:23)
[2019-12-21] MEDS: DOCUSATE SODIUM/SENNA 50/8.6MG TAB PO SCH (10:23)
--- NOTE | 2019-12-21 13:32 | Radiation OncologyConsultation ---
Date of Consultation December 21, 2019 Assessment & Plan (1) Malignant neoplasm prostate: Assessment: Mr. Bean is a 64-year-old gentleman with castrate resistant metastatic prostate cancer currently being treated with abiraterone and prednisone with Lupron underneath the supervision of Dr. Fatima at [facility]. The patient has been admitted to the hospital due to significantly poor pain control. I am now seeing the patient in consultation to discuss the role of radiation therapy. Today, I discussed potential treatment options with the patient including palliative external beam radiation therapy to the pelvis. Additionally I did mention potential consideration of Xofigo ([address]ill[address] 223) as an option for treatment in the future (update staging scans will need to be completed to rule out visceral metastatic disease). Recommendation: At this point, the patient would like to discuss future treatment options with Dr. Fatima who he has an appointment with on this upcoming Tuesday. Additionally, I do think it would be valuable to have input from palliative care regarding overall pain management. I explained to the patient and his significant other that I will be happy to consider palliative external beam radiation therapy to help out with his pain if he is interested. Dr. Fatima could refer the patient to us if there is interested in radiation therapy. Plan: 1. Palliative care consultation. 2. Follow-up with Dr. Fatima. 3. Patient and family encouraged to call us with any further questions or concerns. Rationale/Explanation of Treatment: I did explain the indications, alternatives, benefits, risks and side effects of external beam radiation therapy. I did explain the most common side effects including, but not limited to, skin erythema, skin breakdown, hyperpigmentation, telangiectasia, wound complications, perianal fistula development, fistula formation, nausea, vomiting, bowel obstruction, bowel perforation, dysuria, increased urinary frequency, urgency, diarrhea, constipation, melena, hematochezia, hematuria, radiation cystitis, radiation proctitis, fatigue, decreased blood counts, wound complications from surgery, rectal incontinence, secondary malignancy development. I did explain the procedures and daily process of radiation therapy. The patient understands and would be willing to consent to treatment. The patient and family had multiple questions which were answered to their full satisfaction. Thank you for allowing us to participate in the care of this patient. This chart was completed in part utilizing [employer] Voice Recognition software. Attempts were made to minimize the grammatical errors, random word insertions, pronoun errors and incomplete sentences. Any formal questions or concerns about the content, text or information contained within the body of this dictation should be directly addressed to the provider for clarification. Madelin Sharma MD Department of Radiation Oncology [facility] and [facility] History of Present Illness Attending Physician: Basil Kemp History of Present Illness 02/2019. Patient presents with 2-month history of low back pain and 30 pound unintentional weight loss. 03/13/2019. CT of abdomen/pelvis. IMPRESSION: 1. Nodular soft tissue extending from the left superior aspect of the prostate highly suspicious for prostatic malignancy with extraprostatic extension. Direct invasion of the bladder is not excluded. 2. Massive lymphadenopathy primarily in the left hemipelvis and extending into the retroperitoneum and retrocrural region superiorly. This is consistent with metastatic disease. 3. Osseous lesions in T11 and anterior fifth rib highly suspicious for osseous metastatic disease. 04/11/2019. Lymph node, pelvis, left, mass, core biopsy: Metastatic poorly differentiated carcinoma most consistent with prostate primary. 04/16/2019. Patient started on Leuprolide. Continues on treatment. 05/11/2019 to 08/2019. Docetaxel for 6 cycles underneath the supervision of Dr. Fatima. 07/09/2019. MRI of thoracic spine. IMPRESSION: 1. Extensive marrow replacement throughout the thoracic spine with multiple enhancing skeletal lesions consistent with metastatic disease. No pathologic fracture. No epidural extension of tumor. 2. Normal thoracic cord signal and caliber. 3. No thoracic spine disc herniation. Patent central canal and neural foramen. 07/09/2019. MRI of lumbar spine. IMPRESSION: 1. Diffuse marrow replacement disease most consistent with diffuse osseous metastatic disease affecting the lumbosacral spine, lower thoracic spine, and shereen. Please see separately di ctated thoracic spine MRI. 2. Signal abnormality on T2-weighted imaging in the epidural space at the level of L5 and S1 in the ventral epidural fat. This is not overly convincing for epidural extension of metastatic disease given the absence of significant abnormal enhancement and may relate to venolymphatic congestion. 3. Multilevel degenerative changes greatest at L4-5 with suspected mass effect on the exiting left L4 nerve root. Additional findings as detailed above. 10/10/2019. CT of chest. IMPRESSION: 1. Diffuse osteoblastic metastatic disease. 2. Small areas of abnormal soft tissue seen within the bilateral extrapleural spaces abutting the medial ribs and within the lower paravertebral location. This likely represents soft tissue extension of the patient's known osteoblastic metastatic disease. Extramedullary hematopoiesis is considered less likely. 3. Please refer to the same day abdomen and pelvis CT for further evaluation. 4. Mild aneurysmal dilatation of the ascending thoracic aorta measuring up to 4.3 cm in diameter. 10/10/2019. CT of abdomen/pelvis. IMPRESSION: 1. Significant interval decrease in lower abdominal and pelvic lymphadenopathy since CT of March 13, 2019. Significant interval decrease in size of the suspected primary prostate tumor. 2. Interval increase in size of multiple small nodules/lymph nodes located along the left dome of the bladder/prevesical space. 3. Extensive skeletal metastases. Extent of sclerosis increased since CT of March 13, 2019 however treatment response of skeletal metastases can be difficult to assess by CT. No pathologic fracture. 4. 1 cm indeterminate segments 6 hepatic lesion which was not evident on prior exam. 10/10/2019. Bone scan. IMPRESSION: Extensive radiotracer uptake throughout the axial and appendicular skeleton consistent with skeletal metastatic disease. 10/19/2019. Patient started on amiodarone and prednisone due to PSA progression after docetaxel by Dr. Fatima. 11/21/2019. Medical oncology follow-up with Dr. Fatima. Dr. Fatima recommends MRI of the brain due to poor balance. Dr. Fatima also discuss starting denosumab and continuing on Zytiga with prednisone. 11/28/2019. MRI brain. IMPRESSION: 1. An equivocal single punctate focus of restricted diffusion within the left frontal lobe as described above. This favors artifact. A punctate acute infarct could also have a similar appearance. 2. Diffuse abnormal T1 signal within the calvarium, skull base, clivus consistent with patient's known osteoblastic metastatic disease. 3. Sinus disease as described above. 4. Question of subtle smooth enhancement within the dura at the high convexity. This could be reactive to the suspected metastatic disease. No nodular foci of enhancement identified. 1-2 month brain MRI follow- up recommended to exclude the possibility of metastatic change. 12/19/2019. X-ray of chest and abdomen. IMPRESSION: 1. No acute process within the chest. 2. No evidence for bowel obstruction. 3. Moderate amount of well- formed stool within the colon. 4. 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 Allergies Allergy/AdvReac Type Severity Reaction Status Date / Time No Known Allergies Allergy Verified 10/11/19 18:06 Home Medications Home Medications Medication Instructions Recorded Confirmed Type cholecalciferol (vitamin D3) 1,000 unit PO QAM 03/20/19 12/19/19 History [Vitamin D3] docusate sodium [Stool Softener] 100 mg PO BID 09/21/19 12/19/19 History lisinopril 10 mg PO QAM 09/21/19 12/19/19 History oxycodone-acetaminophen 1 tab PO Q4H PRN 09/21/19 12/19/19 History prednisone 5 mg PO BID 10/11/19 12/19/19 History folic acid 1 mg PO QAM #30 tab 10/16/19 12/19/19 Rx mirtazapine 15 mg PO HS #30 tab 10/16/19 12/19/19 Rx abiraterone 250 mg PO DIRECTED 12/19/19 12/19/19 History atorvastatin 20 mg PO DAILY 12/19/19 12/19/19 History Patient History Medical History HLD (hyperlipidemia) HTN (hypertension) Prostate cancer metastatic to bone Surgical History No pertinent past surgical history Family History Other No pertinent family history in first degree relatives Social History Smoking Status: Never smoker Hx Alcohol Use: No Hx Substance Use: No Preferred Language: Greenlandic Communication Ability: Effective Siding Coreboard Inspector Required: No Beliefs That Will Affect Care: None marital status: Single Current Living Situation: Significant Other Feels Safe at Home: Yes Assistive Devices: Walker Review of Systems Review of Systems: All systems reviewed & are unremarkable except as noted in HPI & below Patient has significant pain involving the low pelvis and also other parts of his body intermittently. He has difficulty lying flat. Physical Exam Constitutional: WD/WN, vitals as above well developed and well nourished Eyes: PERRL, conjunctivae normal, anicteric sclerae ENMT: external ear and nose normal, oropharynx normal Neck: trachea midline, no thyromegaly Respiratory: normal respiratory effort, lungs clear to auscultation Cardiovascular: RRR, no murmur, no edema Gastrointestinal (Abdomen): normal bowel sounds, soft, nontender, no hepatosplenomegaly Musculoskeletal: no cyanosis or clubbing, extremities motor strength 5/5 Skin: no rashes, warm and dry Neurologic: patellar DTR's 2+ bilat, sensation intact and PERRL, EOMI, accommodation nl, no face palsy, no dysarthria Psychiatric: A+Ox3, euthymic affect Time Spent Attending I spent 10 minutes in preparation for this consultation including reviewing all the clinical records, reviewing laboratory studies, pathology reports and imaging results. I spent 20 minutes with direct face to face interaction with the patient and/or family including performing a physical exam and answering all questions. I spent 10 minutes documenting this patient's visit.
--- NOTE | 2019-12-21 15:22 | Ultrasound Report ---
ULTRASOUND BILATERAL LOWER EXTREMITY VENOUS CLINICAL HISTORY: Lower extremity edema. COMPARISON STUDY: No priors. TECHNIQUE: Real-time, grayscale, and color Doppler sonography of the deep veins of the right and left lower extremity was performed from the inguinal crease to the calf. Compression and augmentation wer e utilized. FINDINGS: There is no sonographic evidence of deep venous thrombosis identified in the right or left lower extremity. The common femoral, superficial femoral, and popliteal veins are patent and normally compressible bilaterally. The greater saphenous vein and the profunda femoris vein at the junction w ith the common femoral vein are clear in both legs. The visualized calf veins are patent bilaterally. IMPRESSION: There is no sonographic evidence of deep venous thrombosis identified in the right or lef t lower extremity. ACT 112: Negative or not required by law. Electronically signed by: Zachery Ramos M.D. 12/21/2019 3:21 PM
--- NOTE | 2019-12-21 16:29 | Discharge Summary ---
Date of Service date of admission - December 19, 2019 date of discharge - December 21, 2019 Admission HPI Per Admitting Provider Hang Bean is a 64 year old male with metastatic prostate cancer currently treated with Zytiga who presents to the ER with generalized weakness, dizziness and pain. He reports this is similar to when I admitted him back in September. He was anemic at that stage in addition and has had multiple blood transfusions since although does not report significant improvements with his blood transfusions. He does note dizziness and lightheadedness however. He denies significant nausea as he was having back in September but has continued appetite suppression which ini tially improved on Zytiga and mirtazapine. His pain issue appears to be pain which initially he just tells me is everywhere although also notes most significantly it is down the front of his thighs when he stands but finds this hard to describe in much detail. No urinary retention or perianal numbness. He feels his problem is more pain than weakness in his lower extremities. He continues to feel his oncologist has not told him much about his prognosis and continues to have anxiety about this which was similar to what he told me back in September. His notes significant worsening of his generalized weakness and pain over the last 5 days although reports no significant exacerbating event that could have started this episode. No trauma. Principal Diagnosis severe bone pain 2nd to metastatic prostate cancer symptomatic anemia s/p PRBCs Discharge Exam Constitutional + thin, + cachectic and + frail appearing; no acute distress and no altered mental status ENMT external ear and nose normal, oropharynx normal Respiratory normal respiratory effort, lungs clear to auscultation Cardiovascular Rate/Rhythm: regular rate and regular rhythm Heart Sounds: normal S1 and normal S2; no murmur Vessels: posterior tibial pulses present and dorsalis pedis pulses present; no JVD Extremities: + edema (<1+ edema b/l ) Gastrointestinal (Abdomen) normal bowel sounds, soft, nontender, no hepatosplenomegaly Neurologic strength 5/5 x b/l arms. hip flexion b/l 4/5 strength. dorsiflexion/plantarflexion b/l ankles near 5/5 strength. Psychiatric A+Ox3, euthymic affect Discharge Data Allergies Allergy/AdvReac Type Severity Reaction Status Date / Time No Known Allergies Allergy Verified 10/11/19 18:06 Consultations Palliative Care Radiation Oncology PT OT Ordered Studies 12/21/19 15:00 US venous doppler LE BI Routine - negative for DVT b/l. PRBCs x 2 units lumbar spine x-rays - IMPRESSION: 1. 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 2. No fracture or subluxation Hospital Course (1) Symptomatic anemia: Presenting Hb was 6.9, s/p 2 units PRBCs. Discharge Hb was 8.8. Baseline Hb in the setting of advanced prostate cancer is about 8 to 8.5. (2) Prostate cancer metastatic to bone: Imaging studies are consistent with severe metastatic prostate cancer to the bones. He has severe bone pain from such especially the hips and pelvic bones. He was initiated on oxycontin 20mg BID for basal pain control and will continue on percocet prn for breakthrough pain. Radiation oncology was consulted for consideration of palliative radiation to areas of severe bone pain but patient declined to commit to such at this time. He voiced that he wanted to speak with his out of town oncologist to discuss options for treatment before pursuing any specific treatment modality. He received an increase in his prednisone while here and will perform a taper of such over about 1 week then back to his usual dose of 5mg BID. He will continue on zytiga for now. (3) Generalized weakness: Multifactorial - acute/chronic anemia, advancing prostate cancer, deconditioning, etc. Seen by PT/OT while hospitalized. Received PRBCS and steroid burst while here. (4) Severe protein-calorie malnutrition: 2nd to advanced prostate cancer. (5) HTN (hypertension): Continue lisinopril. (6) Hypokalemia: Replaced and normalized prior to discharge. (7) Edema: 2nd to severe hypoalbuminemia. Albumin level 1.7 while hospitalized. Dopplers were obtained and were negative for DVT b/l. Low albumin 2nd to malnutrition from advanced prostate cancer. Total Time Total Time Spent Total Time Spent (In Minutes): 45 Total Time Includes: Examination of the Patient, Discharge Planning, Medication Reconciliation and Communication With Other Providers Discharge Plan Discharge Items Patient Disposition: Home - Home Health Services Reason For Visit: SYMPTOMATIC ANEMIA,GENERALIZED WEAKNESS Discharge Diagnosis: 1. anemia due to prostate cancer - 2 units of blood given. 2. generalized weakness due to prostate cancer. 3. bone pain due to prostate cancer. Activity: As commented below Activity Comment: gradually increase activities as tolerated or as desired Non-emergency contact: Primary Care Provider and Oncologist Call non-emergency contact if: you have any medication questions, your symptoms worsen, your pain is not controlled, your pain is worsening, your pain is concerning for you and you have a fever Follow-up/Referrals: Madelin Sharma MD [Physician] - (please contact Dr Sharma if you wish to pursue radiation treatment for back pain, pelvic pain, etc. ) Emeil Erazo [Primary Care Provider] - 12/24/19 11:10 am (please call Dr Erazo for additional refills on your pain medication and any other needs ) Diet: Regular Addtl Attending Provider Instructions: You were admitted to the hospital for severe anemia (low red cells) and diffuse pain in your bones due to your prostate cancer. Your hemoglobin was 6.9, and was 8.8 after receiving 2 units of blood. We added long-acting oxycodone to your pain regimen (also known as "oxycontin") and this seems to be helping. In addition we increased your prednisone for pain control. Your dopplers of the legs did NOT show blood clots. Dr Sharma from radiation oncology saw you in consult and has offered palliative radiation to you for pain control, if desired. Lastly, you had significant constipation on your x-rays. Recommendations -- 1. take oxycontin (oxycodone ER) 20mg twice daily every day. This is long- acting pain medication. 2. continue your oxycodone-acetaminophen 1 tablet every 4 hours NEEDED for breakthrough pain as previous. 3. for constipation - * miralax once or twice daily -- purchase [id number] * senna 2 tabs daily 4. prednisone -- * take 15mg twice daily for 3 days, then - * 15mg in the am, and 10mg in the pm -- for 3 days, then - * 10mg twice daily for 3 days, then - * resume your normal schedule of 5mg twice daily thereafter Follow-up -- see your oncologist later this week as scheduled Use your walker at home for ambulation. Return to [facility] if - * you have fever over 100 degrees * you have uncontrolled pain in any location despite your pain meds * you have shortness of breath * you have severe edema, pain, or redness of either leg * any other concerns Best wishes and stay well! -Dr Kemp Pending Studies at Discharge: No Stand-Alone Forms: [facility], Opioid Pain Management, Smoking Cessation Medications and DC Order Prescriptions: New polyethylene glycol 3350 [Miralax] 17 gram Powder In Packet 17 g PO DIRECTED Qty: 1 RF: 0 sennosides [senna] 8.6 mg tablet 17.2 mg PO DAILY Qty: 60 RF: 0 oxycodone 20 mg tablet,oral only,ext.rel.12 hr 20 mg PO BID Qty: 30 RF: 0 prednisone 5 mg tablet 5 mg PO DIRECTED Qty: 45 RF: 0 Continued oxycodone-acetaminophen 10-325 mg tablet 1 tab PO Q4H PRN (Reason: Pain) RF: 0 lisinopril 10 mg tablet 10 mg PO QAM RF: 0 atorvastatin 20 mg tablet 20 mg PO DAILY RF: 0 abiraterone 250 mg tablet 250 mg PO DIRECTED RF: 0 cholecalciferol (vitamin D3) [Vitamin D3] 1,000 unit Tablet,Chewable 1,000 unit PO QAM RF: 0 prednisone 5 mg tablet 5 mg PO BID RF: 0 folic acid 1 mg Tablet 1 mg PO QAM Qty: 30 RF: 0 mirtazapine 15 mg Tablet 15 mg PO HS Qty: 30 RF: 2 Discontinued docusate sodium [Stool Softener] 100 mg Capsule 100 mg PO BID RF: 0 Discharge Orders: Discharge Order (Routine); Ordered 12/21/19 Ordered By: Basil Weaver/Other Patient Handouts: Anemia During Cancer, Cancer: Managing Fatigue, Discharge Instructions for Hypokalemia Admission Data Admit Date/Time: 12/19/19 12:30 Attending Provider: Basil Kemp Admit Provider: Basil Wolfe Primary Care Provider: Emeli Erazo Other Providers: Basil Wolfe ; Nimisha Brooks [facility]eral B. ; [facility] Other Interventions: Discharge Summary Assessment (RN) Last Done: 12/21/19 13:45 Coding Level of Care Code D/C Day Management >30 mins Diagnoses Symptomatic anemia D64.9 Prostate cancer metastatic to bone C61; C79.51 Generalized weakness R53.1 Severe protein-calorie malnutrition E43 HTN (hypertension) I10 Hypokalemia E87.6 Edema R60.9
[2019-12-21] MEDS ORDERED: ENOXAPARIN INJ 40 MG/0.4 ML SYR SQ SCH (21:00)
== END 2019-12-21 17:15 | disposition home health service (06) | DRG 811 ==
LOC: ED 09:10 → 3W 12:30 → SUATTDRO 12:30 → 3W 14:29